=== PATIENT | female | born 1980 | race Caucasian/White ===

== ENCOUNTER 2017-05-18 14:40 | Emergency (ER) | payer SELFPAY ==
[2017-05-18 14:43] VITALS: BP 155/96; PULSE 100; RESP 6; O2SAT 100
[2017-05-18 14:48] VITALS: RESP 32; O2SAT 100
--- NOTE | 2017-05-18 15:44 | ED.REPORT ---
HPI-Dyspnea / Wheezing Date of Service May 18, 2017 ED Provider: Darnell Stiles MD The pt is a 37 y/o female w/ a hx of anxiety attacks, and PTSD presenting to the ED complaining of SOB onset 4 hours ago. She is also experiencing chest pain that initially was a flutter while she was driving which developed into a chest pain described as crushing, burning, localized to the center of the chest and non-radiating, 10/10 pain along w/ dizziness, blurry vision, nausea, and a headache. The pain is coming intermittently now w/ 7/10 pain and nothing makes it worse or better. She is also experiencing aching abdominal pain. She also reports having a very stressful day due to starting a new job. Nursing Notes Stated Complaint: CANT BREATH Chief Complaint: SOB Nursing Notes Reviewed: Yes (Locationary, 9GAG not reconciled) Allergies: Coded Allergies: cefaclor (Unverified Allergy, Intermediate, 05/18/17) gluten (Unverified Allergy, Unknown, 05/18/17) Scheduled PRN Lorazepam (Lorazepam) 1 Mg Tablet 1 MG PO BID PRN PRN For Anxiety General Time Seen by MD: 15:06 Chief Complaint Shortness of breath Hx Obtained From: Patient Arrived By: Walk-in Sudden in Onset?: Yes Onset Occurred: 1 - 4 hours ago Symptom Duration: Since onset Recent Healthcare: No recent doctor visit, No recent hospitalization Past Medical History Past Medical History Anxiety attacks PTSD Night terrors Uterine fibroids Past Surgical History Ovarian cysts Reports: Hysterectomy Family History Paternal grandmother had CHF for 30 years and at 97 Maternal grandmother had a CVA Smoking History Never Smoker Social History Alcohol Use: "Social" Drug Use: Denies drug use Ambulatory Status Independent Review of Systems Respiratory: Reports: Shortness of breath Cardiovascular: Reports: Chest pain Complete sys rev & neg: except as marked. Eyes: Reports: Blurred bilateral GI: Reports: Abdominal pain, Nausea Neurologic: Reports: Dizziness, Headache Physical Exam Initial Vital Signs Vital Signs (First) Date Time Temp Pulse Resp B/P Pulse Ox O2 Delivery O2 Flow Rate FiO2 05/18/17 14:43 36.0 100 6 155/96 100 05/18/17 14:48 Room Air Initial VS: Reviewed, Vital signs abnormal (suspect shipwright error, vitals normal in room) Head / Eyes: Atraumatic, Normocephalic, PERRL ENT: Mucous membranes moist, Conjunctiva normal, No scleral icterus Abdomen / GI: Soft, Non-tender Extremities: Vascular intact, Neuro intact, No swelling, No tenderness Skin: Warm, Dry, No cyanosis Neurologic: Alert, Oriented, Nonfocal Psychiatric: Mood/affect normal, Behavior normal, Normal thought content General/Constitutional: Awake, Alert Behavior: Positive: Anxious, Tearful Neck: Atraumatic, Supple, Full range of motion Respiratory / Chest: Atraumatic, Breath sounds NL, Breath sounds = bilat Cardiovascular: Heart rate NL, Regular rhythm, Heart sounds NL Interpretation & Diagnostics This is a 37-year-old male presents complaining of some chest discomfort and shortness of breath. She has no cardiac risk factors, no risk factors for DVT or PE, and a stress at a new job and does have a history of anxiety attacks and some chronic pain she is Medications for. She felt short of breath, there is no pleuritic discomfort, no exertional discomfort. Symptoms started while driving the car. She is anxious on arrival, but I going to see her she has a normal exam. She demonstrates no tachypnea or dyspnea, she does appear anxious and that she has. Her lungs are clear no bronchospasm or other abnormality. She is not tachycardic. Abdomen soft nontender, there is no edema findings of venous thromboembolism on physical exam. Her EKG is normal. Chest x-ray and blood work are normal. The medical student who saw her initially commented on thyroid tenderness, which she also reports is chronic, but a TSH was obtained and was normal. Patient is discharged in good condition. I did offer a few lorazepam for. Use if needed. Routine and return precautions reviewed. Lab Results Interpretation Result Diagram: 05/18/17 1529 05/18/17 1529 Test 05/18/17 15:29 05/18/17 15:32 05/18/17 15:50 05/18/17 16:30 White Blood Count 9.8th/mm3 (3.8-10.1) Red Blood Count 5.11mil/mm3 (3.90-5.20) Hemoglobin 14.3g/dL (12.0-15.6) Hematocrit 43.2% (35.0-46.0) Mean Corpuscular Volume 84fL (81-100) Mean Corpuscular Hemoglobin 28.0pg (27.0-35.0) Mean Corpuscular Hemoglobin Concent 33.1% (32.0-37.0) Red Cell Distribution Width 12.9% (12.3-15.4) Platelet Count 326bil/L (150-400) Neutrophils (%) (Auto) 62% (40-74) Lymphocytes (%) (Auto) 25% (14-46) Monocytes (%) (Auto) 9% (4-12) Eosinophils (%) (Auto) 4% (0-5) Basophils (%) (Auto) 0% (0-3) Sodium Level 137mEq/L (134-144) Potassium Level 3.6mEq/L (3.5-5.2) Chloride Level 102mEq/L (97-108) Carbon Dioxide Level 18mmol/L (18-29) Blood Urea Nitrogen 12mg/dL (6-20) Creatinine 0.86mg/dL (0.57-1.00) Estimat Glomerular Filtration Rate 105mL/min (>59) Glucose Level 118mg/dL (60-99) Calcium Level 9.3mg/dL (8.5-10.1) Magnesium Level 2.0mg/dL (1.6-2.6) Total Bilirubin 0.3mg/dL (0.0-1.2) Aspartate Amino Transf (AST/SGOT) 14U/L (0-50) Alanine Aminotransferase (ALT/SGPT) 13U/L (0-32) Alkaline Phosphatase 108U/L (25-150) Troponin T < 0.010ug/L (0.0-0.011) Pro-B-Type Natriuretic Peptide 40.99pg/mL (0-130) Total Protein 7.2g/dL (6.4-8.4) Albumin 4.1g/dL (3.4-5.0) Human Chorionic Gonadotropin, Qual Negative (Negative) Thyroid Stimulating Hormone (TSH) 2.080uIU/mL (0.450-4.500) Urine Color Yellow (YELLOW) Urine Appearance Clear (CLEAR,HAZY) Urine pH 7.0 (5.0-8.0) Urine Specific [place] 1.010 (1.003-1.035) Urine Protein Negativemg/dL (NEG,TRACE) Urine Glucose (UA) Negativemg/dL (NEGATIVE) Urine Ketones Negativemg/dL (NEGATIVE) Urine Occult Blood Negative (NEGATIVE) Urine Nitrite Negative (NEGATIVE) Urine Bilirubin Negative (NEGATIVE) Urine Urobilinogen Normalmg/dL (NORMAL) Urine Leukocyte Esterase Negative (NEGATIVE) Urine RBC 0-2/hpf (0-2) Urine WBC 0-5/hpf (0-5) Urine Epithelial Cells Moderate/hpf (NONE-MOD) Urine Crystals None seen (NONE SEEN) Urine Bacteria Many/hpf (NONE-FEW) Urine Hyaline Casts None/lpf (NONE) Urine Granular Casts None seen (NONE SEEN) Urine Waxy Casts None seen (NONE SEEN) Urine Red Blood Cell Casts None seen (NONE SEEN) Urine White Blood Cell Casts None seen (NONE SEEN) Urine Mucus None seen (None Seen) Urine Trichomonas None seen (NONE SEEN) Urine Yeast None (NONE SEEN) Urinalysis Comment None Urine Culture Reflexed Indicated Lab Results Interpretation: CBC normal CMP normal Troponin negative TSH normal Magnesium normal negative UA negative ECG Interpretation ECG Interpretation: Rate 81 NSR Time: 15:20 Interpreted by: ED physician X-Ray Chest Interpretation Chest Xray Interpretation: IMPRESSION: No radiographic evidence of acute cardiopulmonary pathology. Dictated by: Davis Graf M.D. on 05/18/2017 at 16:46 Approved by: Davis Graf M.D. on 05/18/2017 at 16:47 View: Portable, 1 view Interpretation / Wet Read by: Interpret - Radiologist Re-Eval/Medical Decision Source of Hx: Old records Re-Evaluation/Progress : Time of Eval: 17:04 Re-Evaluation/Progress Note: Pt rechecked. Informed pt of plan for treatment. Pt understands and agrees with plan for treatment. F/U instructions and RTER warnings given. All questions addressed. Differential Diagnosis: Positive: Anxiety, Negative: Acute coronary syndrome, COPD exacerbation, Cardiogenic shock, Dysrhythmia, Exercise induced asthma, Myocardial infarction, PSVT, Pericarditis , Pneumonia, Pneumothorax, Pulmonary embolism Counseled Regarding: Diagnosis, Lab results, Need for follow-up, When/why to return to ED Discharge & Departure Impression: Primary Impression: Shortness of breath Additional Impression: Chest discomfort Disposition: Home Discharge Condition All VS Reviewed: Yes Condition: Stable Additional Instructions: 1. A dangerous cause of your symptoms was not identified. 2. Your EKG, blood tests and Chest Xray were normal. 3. Your symptoms are expected to improve with time. 4. Activities as tolerated. 5. IF needed for severe anxiety/symptoms you can try taking lorazepam 1mg up to twice a day. Uses sparingly, and only if needed. Note this medicine does cause some drowsiness, no driving for at least 4 hours after taking. Not a great skilled nursing medicine and should only be used intermittently, and if needed 6. Return if new or worsening symptoms. Referrals: Shai Sepulveda DO (PCP) Brian Clayton MD Scribe Attestation Portions of this note were transcribed by Rogelio Mas. I, Dr. Stiles personally performed the history, physical exam and medical decision-making; I reviewed and confirmed the accuracy of the information in the transcribed note. copies to: Brian Clayton MD; Shai Sepulveda Matthew F MD May 18, 2017 15:44 Rogelio Mas May 18, 2017 15:50
[2017-05-18 15:49] LABS: BASOPHILS % (AUTO) 0 % (0-3); EOSINOPHILS % (AUTO) 4 % (0-5); MONOCYTES % (AUTO) 9 % (4-12); Mean Corpuscular Volume 84 fL (81-100); NEUTROPHILS % (AUTO) 62 % (40-74); Platelet Count 326 bil/L (150-400)
[2017-05-18 15:50] VITALS: BP 150/88; PULSE 90; RESP 19; O2SAT 97
[2017-05-18 16:26] LABS: TROPONIN T < 0.010 ug/L (0.0-0.011)
[2017-05-18 16:39] LABS: APPEARANCE,URINE CLEAR (CLEAR,HAZY); COLOR,URINE YELLOW (YELLOW); OCCULT BLOOD,URINE NEGATIVE (NEGATIVE); UROBILINOGEN,URINE NORMAL (NORMAL)
--- NOTE | 2017-05-18 16:48 | DRSVH ---
PROCEDURE: X-RAY CHEST ONE VIEW, PORTABLE ([id number]) INDICATIONS: shortness of breath TECHNIQUE: One view of the chest was acquired. COMPARISON: None. FINDINGS: Surgical changes and devices: None. Lungs and pleura: No pleural effusions or pneumothorax. Lungs are clear. Mediastinum: Mediastinal contours appear normal. Heart size is normal. Bones and chest wall: No suspicious bony lesions. Overlying soft tissues appear unremarkable. IMPRESSION: No radiographic evidence of acute cardiopulmonary pathology. Dictated by: Davis Graf M.D. on 05/18/2017 at 16:46 Approved by: Davis Graf M.D. on 05/18/2017 at 16:47
[2017-05-18] MEDS ORDERED: LORA1TAB PO (17:28)
[2017-05-18 18:32] VITALS: BP 120/73; PULSE 114; RESP 16; O2SAT 97
== END 2017-05-18 18:35 | disposition home or self-care (01) ==
LOC: SED 14:40
DX: R06.02 Shortness of breath (principal); R07.89 Other chest pain; F41.9 Anxiety disorder, unspecified; F43.10 Post-traumatic stress disorder, unspecified; Z90.710 Acquired absence of both cervix and uterus; Z88.8 Allergy status to other drugs, medicaments and biological substances; Z88.1 Allergy status to other antibiotic agents
CPT/HCPCS: 36415; 71010; 80053; 81000; 83735; 83880; 84443; 84484; 84703; 85025; 87086; 87088; 93005; 96374; 99285; J2060